=== PATIENT | male | born 1955 | race Caucasian/White ===

== ENCOUNTER 2020-09-01 17:24 | Emergency (ER) | payer BC ==
[~2020-09-01] VITALS: Ht 180.3 cm; Wt 100.0 kg
[2020-09-01 17:35] VITALS: TEMP 98
[2020-09-01 17:49] LABS: BASO # 0.1 (0.0-0.2); BASO % 0.9 % (0.0-2.0); EOS # 0.2 (0.0-0.7); EOS % 1.7 % (0-4.0); GRAN # 9.9 (1.4-6.5); GRAN % 70.7 % (42.2-75.2); HEMATOCRIT 45.6 % (42.0-52.0); HEMOGLOBIN 15.6 g/dl (13.5-18.0); LYMPH # 2.5 (1.2-3.4); LYMPH % 18.2 % (20.0-51.0); MEAN CELL VOLUME 98 fl (80.0-100.0); MEAN CORPUSCULAR HEMOGLOBIN 34 pg (27.0-31.0); MEAN CORPUSCULAR HGB CONC 34 g/dl (33.0-37.0); MEAN PLATELET VOLUME 9.7 fl (7.4-10.4); MONO # 1.1 (0.1-0.6); PLATELET COUNT 367 K/mm3 (130-400); RED BLOOD COUNT 4.64 M/mm3 (4.20-5.60); REDCELL DISTRIBUTION WIDTH-CV 14.8 % (11.5-14.5)
[2020-09-01 17:57] LABS: PROTHROMBIN TIME 10.7 SECONDS (9.7-12.8)
[2020-09-01 18:00] LABS: PARTIAL THROMBOPLASTIN TIME 28.1 SECONDS (26.0-37.0)
[2020-09-01 18:03] LABS: ALBUMIN 4.5 gm/dL (3.5-5.0); ALKALINE PHOSPHATASE 61 U/L (50-136); ANION GAP 13 mmol/L (7-16); AST,SGOT 29 U/L (15-37); BILIRUBIN,TOTAL 1.2 mg/dL (0.0-1.0); BLOOD UREA NITROGEN 14 mg/dL (9-20); CALCIUM 9.5 mg/dL (8.4-10.2); CARBON DIOXIDE 24 mmol/L (22-30); CHLORIDE 100 mmol/L (98-107); CREATININE, serum 1.19 (0.66-1.25); GLUCOSE 129 mg/dL (74-106); POTASSIUM 3.4 mmol/L (3.4-5.0); SODIUM 137 mmol/L (137-145); TOTAL PROTEIN 7.9 gm/dL (6.4-8.2)
[2020-09-01 18:09] LABS: ALANINE AMINOTRANSFERASE 24 U/L (4-49)
[2020-09-01 18:17] LABS: TROPONIN-I < 0.012 ng/mL (0.000-0.035)
[2020-09-01 19:54] VITALS: BP 142/86; PULSE 108
== END 2020-09-01 20:00 | disposition home or self-care (01) ==
LOC: COL.ER 17:24
PROVIDERS: Family Medicine
DX: R06.02 Shortness of breath (principal); M79.602 Pain in left arm; R07.2 Precordial pain; R00.0 Tachycardia, unspecified; R53.1 Weakness; F17.290 Nicotine dependence, other tobacco product, uncomplicated
CPT/HCPCS: Q9967

== ENCOUNTER 2021-11-26 16:51 | Emergency (ER) | payer BC ==
[~2021-11-26] VITALS: Ht 177.8 cm; Wt 100.0 kg
[2021-11-26 17:06] VITALS: TEMP 97.8
[2021-11-26 18:07] LABS: BASO % 0.2 % (0.0-2.0); EOS # 0.2 K/mm3 (0.0-0.7); EOS % 2.2 % (0.0-4.0); GRAN # 6.3 K/mm3 (1.4-6.5); GRAN % 70.2 % (42.2-75.2); HEMATOCRIT 46.3 % (42.0-52.0); HEMOGLOBIN 16.4 g/dl (13.5-18.0); LYMPH # 1.5 K/mm3 (1.2-3.4); LYMPH % 16.8 % (20.0-51.0); MEAN CELL VOLUME 102 fl (80.0-100.0); MEAN CORPUSCULAR HEMOGLOBIN 36 pg (27-31); MEAN CORPUSCULAR HGB CONC 35 g/dl (33.0-37.0); MEAN PLATELET VOLUME 11.1 fl (7.4-10.4); MONO # 0.9 K/mm3 (0.1-0.6); MONO % 10.4 % (1.7-9.3); PLATELET COUNT 270 K/mm3 (130-400); RED BLOOD COUNT 4.52 M/mm3 (4.20-5.60); REDCELL DISTRIBUTION WIDTH-CV 13.5 % (11.5-14.5)
[2021-11-26 18:23] LABS: ALANINE AMINOTRANSFERASE 18 U/L (0-55); ALBUMIN 3.5 gm/dL (3.4-4.8); ALKALINE PHOSPHATASE 60 U/L (40-150); ANION GAP 12 mmol/L (7-16); AST,SGOT 20 U/L (5-34); BILIRUBIN,TOTAL 0.7 mg/dL (0.2-1.2); BLOOD UREA NITROGEN 17 mg/dL (8-26); CALCIUM 8.5 mg/dL (8.4-10.2); CARBON DIOXIDE 20 mmol/L (23-31); CHLORIDE 106 mmol/L (98-107); CREATININE, serum 1.13 mg/dL (0.72-1.25); GLUCOSE 97 mg/dL (70-99); POTASSIUM 3.7 mmol/L (3.5-4.5); SODIUM 138 mmol/L (136-145); TOTAL PROTEIN 6.8 gm/dL (6.2-8.1)
[2021-11-26 18:29] LABS: TROPONIN-I < 0.010 ng/mL (0.00-0.033)
[2021-11-26] MEDS ORDERED: EPIPEN 2-PAK1 MG/ML IM (20:32)
[2021-11-26] MEDS ORDERED: PREDNISONE50 MG PO (20:32)
[2021-11-26 21:55] VITALS: BP 168/86; PULSE 81
== END 2021-11-26 22:00 | disposition home or self-care (01) ==
LOC: COL.ER 16:51
PROVIDERS: Emergency Medicine
DX: T78.2XXA Anaphylactic shock, unspecified, initial encounter (principal); Z86.79 Personal history of other diseases of the circulatory system; Z79.899 Other long term (current) drug therapy
CPT/HCPCS: J0171; J1200; J2930; J7120